=== PATIENT | male | born 1970 | race Caucasian/White ===

== ENCOUNTER 2017-09-30 14:49 | Emergency (ER) | payer SELFPAY ==
[2017-09-30 15:26] VITALS: BP 137/79; PULSE 109; RESP 15; TEMP 99.3; O2SAT 99
[2017-09-30] MEDS ORDERED: BACT800T5 PO (15:54)
[2017-09-30] MEDS ORDERED: TRAM50 PO (15:57)
[2017-09-30] MEDS ORDERED: NABU1TAB37 PO (15:57)
--- NOTE | 2017-09-30 16:06 | PD ---
HPI . Skin lesions Chief Complaint: Skin Problem Time Seen by Provider: 15:38 Travel History International Travel<30 days: No Contact w/Intl Traveler<30days: No Traveled to known affect area: No History of Present Illness HPI This patient presents for the evaluation of skin lesions on both legs. He noted the onset of a right montero lesion 1 week ago. Then he noted a left knee lesion 3 days ago. He states that the lesions are painful and he rates the pain at 9/10. The pain is exacerbated by walking. He has noted no drainage. PFSH Social History Tobacco Use: No Allergies-Medications (Allergen,Severity, Reaction): Coded Allergies: No Known Allergies (Unverified , 09/30/17) Reported Meds & Prescriptions Reported Meds & Active Scripts Active Nabumetone 500 Mg Tab 500 Mg PO BID Ultram (Tramadol HCl) 50 Mg Tab 50 Mg PO Q4H PRN Bactrim DS (Sulfamethoxazole-Trimethoprim) 800-160 Mg Tab 1 Tab PO BID Review of Systems Except as stated in HPI: all other systems reviewed are Neg Physical Exam Narrative GENERAL: Awake and alert and in no acute distress. SKIN: Warm and dry. There is a scabbed area on the right lateral montero. The surrounding tissue is a little angry appearing. There is no purulent drainage. There is no fluctuance. There is no crepitus. There is a separate area on the left knee which is indurated. There is no fluctuance. It is very small. HEAD: Normocephalic/atraumatic. EYES: Pupils are equal. Extraocular movements are intact. NECK: Normal range of motion. CARDIOVASCULAR: Regular rate and rhythm. RESPIRATORY: Nonlabored respirations. MUSCULOSKELETAL: Atraumatic. NEUROLOGICAL: Nonfocal. PSYCHIATRIC: Appropriate mood and affect. Data Data Last Documented VS Vital Signs Date Time Temp Pulse Resp B/P (MAP) Pulse Ox O2 Delivery O2 Flow Rate FiO2 09/30/17 15:26 99.3 109 15 137/79 (98) 99 Orders Orders Ed Discharge Order (09/30/17 15:57) MDM Medical Decision Making Medical Screen Exam Complete: Yes Emergency Medical Condition: Yes Differential Diagnosis My differential diagnosis closed but is not limited to abscess, cyst, lipoma Narrative Course Patient presents with 2 lesions, one on each leg. He has had a lesion on the right montero for about a week. It is a scabbed area which looks a little bit angry. There is no purulent drainage and no fluctuance. There is no crepitus of the skin. There is a separate nodule on the left knee. It looks like an early abscess. There is no fluctuance. The patient will be discharged home with prescriptions for Bactrim, Relafen and Ultram. E GROVERMarco Antonio was queried and reviewed. Diagnosis Primary Impression: Abscess Patient Instructions: General Instructions, Abscess (ED) Departure Forms: Tests/Procedures Scripts Nabumetone (Nabumetone) 500 Mg Tab 500 MG PO BID for Pain-Inflammation, #60 TAB 0 Refills Prov: Maddi Santana MD 09/30/17 Tramadol (Ultram) 50 Mg Tab 50 MG PO Q4H Y for PAIN, #12 TAB 0 Refills Prov: Maddi Santana MD 09/30/17 Sulfamethoxazole-Trimethoprim (Bactrim DS) 800-160 Mg Tab 1 TAB PO BID for Infection, #20 TAB 0 Refills Prov: Maddi Santana MD 09/30/17 Disposition: 01 DISCHARGE HOME Condition: Stable Maddi Santana MD September 30, 2017 16:06
== END 2017-09-30 16:10 | disposition home or self-care (01) ==
LOC: NEPD 14:49
DX: L02.416 Cutaneous abscess of left lower limb (principal)
CPT/HCPCS: 99283

== ENCOUNTER 2017-10-02 10:10 | Emergency (ER) | payer SELFPAY ==
[~2017-10-02] VITALS: Ht 172.7 cm; Wt 70.0 kg
[~2017-10-02 10:10] MED LIST: BACT800T5 PO; NABU1TAB37 PO; TRAM50 PO
[2017-10-02 10:15] VITALS: BP 188/105; PULSE 102; RESP 17; TEMP 99.3; O2SAT 99
--- NOTE | 2017-10-02 11:14 | PD ---
HPI Chief Complaint: Skin Problem Time Seen by Provider: 10:33 Travel History International Travel<30 days: No Contact w/Intl Traveler<30days: No Traveled to known affect area: No History of Present Illness HPI 47-year-old male presents emergency department with worsening abscess on the left anterior distal thigh. Patient was seen [address] Santana and started on Bactrim DS twice daily. Patient states the area has become more swollen and he had a small amount of drainage this morning. He is more painful today. He states the other lesions on his other leg have improved. He denies fever, chills, or other symptoms. He has history of MRSA in the past. He has no known drug allergies. PFSH Past Medical History Medical History: Denies Significant Hx Diminished Hearing: No Tetanus Vaccination: < 5 Years Past Surgical History Surgical History: No Previous Surgery Social History Alcohol Use: No Tobacco Use: Yes Substance Use: No Allergies-Medications (Allergen,Severity, Reaction): Coded Allergies: No Known Allergies (Unverified , 09/30/17) Reported Meds & Prescriptions Reported Meds & Active Scripts Active Nabumetone 500 Mg Tab 500 Mg PO BID Ultram (Tramadol HCl) 50 Mg Tab 50 Mg PO Q4H PRN Bactrim DS (Sulfamethoxazole-Trimethoprim) 800-160 Mg Tab 1 Tab PO BID Review of Systems Except as stated in HPI: all other systems reviewed are Neg General / Constitutional: No: Fever Eyes: No: Visual changes HENT: No: Headaches Cardiovascular: No: Chest Pain or Discomfort Respiratory: No: Shortness of Breath Gastrointestinal: No: Abdominal Pain Genitourinary: No: Dysuria Musculoskeletal: No: Pain Skin: Positive Lesions, No Rash Neurologic: No: Weakness Psychiatric: No: Depression Endocrine: No: Polydipsia Hematologic/Lymphatic: No: Easy Bruising Physical Exam Narrative GENERAL: Patient appears in mild distress. SKIN: Warm and dry. Normal color. Normal turgor. Patient has healing wound to the right anterior montero. He has a obvious abscess with pointing to the left medial anterior distal thigh, with localized induration, erythema, and warmth. HEAD: Atraumatic. Normocephalic. EYES: Pupils equal and round. No scleral icterus. No injection or drainage. ENT: No nasal bleeding or discharge. Mucous membranes pink and moist. Pharynx is clear. Airway is patent. NECK: Trachea midline. Supple CARDIOVASCULAR: Regular rate and rhythm. RESPIRATORY: No accessory muscle use. Clear to auscultation. Breath sounds equal bilaterally. MUSCULOSKELETAL: Extremities without clubbing, cyanosis, or edema. No obvious deformities. NEUROLOGICAL: Awake and alert. No obvious cranial nerve deficits. Motor grossly within normal limits. Five out of 5 muscle strength in the arms and legs. Normal speech. PSYCHIATRIC: Appropriate mood and affect; insight and judgment normal. Data Data Last Documented VS Vital Signs Date Time Temp Pulse Resp B/P (MAP) Pulse Ox O2 Delivery O2 Flow Rate FiO2 10/02/17 10:15 99.3 102 17 188/105 (132) 99 MDM Medical Decision Making Medical Screen Exam Complete: Yes Emergency Medical Condition: Yes Medical Record Reviewed: Yes Differential Diagnosis MRSA. Cellulitis. Abscess. Narrative Course I&D of abscesses performed with packing placed. Wound culture sent to the lab. Patient is to continue his antibiotics as previous. Wound care is discussed with patient. Patient is to follow-up in 2 days for packing removal and wound check. He can return sooner with worsening symptoms if necessary. Diagnosis Primary Impression: Abscess Patient Instructions: Abscess Incision and Drainage (DC), General Instructions Additional Instructions: I&D of abscesses performed with packing placed. Wound culture sent to the lab. Patient is to continue his antibiotics as previous. Wound care is discussed with patient. Patient is to follow-up in 2 days for packing removal and wound check. He can return sooner with worsening symptoms if necessary. Med/Other Pt SpecificInfo: No Change to Meds Disposition: 01 DISCHARGE HOME Condition: Stable Kristian Hunter October 02, 2017 11:14
== END 2017-10-02 11:35 | disposition home or self-care (01) ==
LOC: NEPD 10:10
DX: L02.416 Cutaneous abscess of left lower limb (principal); Z72.0 Tobacco use
CPT/HCPCS: 10060; 86403; 87070; 87186